=== PATIENT | female | born 1980 | race Caucasian/White ===

== ENCOUNTER 2022-10-05 12:54 | Emergency (ER) | payer BC, SELFPAY ==
--- NOTE | ~2022-10-05 | CT_ITS ---
EXAMINATION: CT abdomen pelvis w con DATE: 10/05/2022 19:10 INDICATION: RLQ abdominal pain TECHNIQUE: Computed tomography (CT) of the abdomen and pelvis was performed with 100 mL Omnipaque-350 intravenous contrast. Automated exposure control and iterative reconstruction technique were employe d. The dose-length product was 431.36 mGy-cm. COMPARISON: None. FINDINGS: Lower thorax: Unremarkable Liver: Normal. Biliary/Gallbladder: Gallbladder is absent. No concerning bile duct dilation. Pancreas: No mass or duct dilation. Spleen: Normal. Adrenals:No mass. Kidneys: Left midpole hypodensity, too small to characterize but most likely represents a cyst. No strange spicious mass, obstructing calcification, or hydronephrosis. GI tract: Mild distal esophageal and gastric wall edema. No small or large bowel dilation. Uniform soraya wel wall enhancement. Normal appendix. Mesentery/Peritoneum: No ascites, mass, or free air. Retroperitoneum: No mass. Atherosclerotic abdominal aortic and/or arterial calcifications. Pelvis: Mild wall thickening of the partially distended urinary bladder. Likely small uterine fibroid s. Simple left ovarian cyst that requires no additional workup. Normal-appearing right ovary with dom inant follicles. Soft Tissues: Soft tissues and body wall unremarkable. Bones: No acute osseous finding. IMPRESSION: Esophagitis/gastritis. Urinary bladder wall thickening which may be secondary to incomplete distentio n or cystitis. Reviewed, dictated and finalized at location [facility] [employer] [employer] IMPRESSION: Esophagitis/gastritis. Urinary bladder wall thickening which may be secondary t o incomplete distention or cystitis.
[2022-10-05 13:10] VITALS: BP 123/76; PULSE 116; RESP 16; TEMP 36.6; O2SAT 100
[2022-10-05 14:03] LABS: Basophils Absolute Auto 0.1 K/mm3 (0.0-0.1); Basophils Percent Auto 0.8 % (0.2-1.2); Eosinophils Absolute Auto 0.2 K/mm3 (0-0.3); Eosinophils Percent Auto 1.6 % (0-4.4); Hematocrit 43.3 % (37.0-47.0); Hemoglobin 14.3 g/dL (12.0-15.0); Immature Granulocyte Absolute 0.05 K/mm3 (0.00-0.031); Immature Granulocyte Percent A 0.4 % (0-0.5); Lymphocytes Absolute Auto 2.52 K/mm3 (0.9-3.2); Lymphocytes Percent Auto 22.3 % (18.3-44.2); Mean Corpuscular Volume 84.9 fl (80-100); Mean Platelet Volume 11.1 fl (7.4-10.4); Monocytes Absolute Auto 0.7 K/mm3 (0.1-0.6); Monocytes Percent Auto 5.9 % (2.6-8.5); Neutrophils Absolute Auto 7.8 K/mm3 (1.3-6.7); Platelet Count Result 408 k/mm3 (150-375); White Blood Count 11.3 K/mm3 (4.5-10.0)
[2022-10-05 14:07] LABS: Appearance Urine Slightly Cloudy (Clear); Bilirubin Urine 1+ (Negative); Blood Urine Negative (Negative); Color Urine Yellow (Yellow); Glucose Urine UA Negative (Negative); Ketones Urine Negative (Negative); Leukocyte Esterase Ur Negative LEU/UL (Negative); Nitrate Urine Negative (Negative); Protein Urine Negative (Negative); Urobilinogen Urine 0.2 mg/dL (<2.0); pH Urine 5.5 (5.0-9.0)
[2022-10-05 14:15] LABS: Alanine Aminotransferase 16 U/L (6-35); Albumin Level 4.3 g/dL (3.5-5.1); Alkaline Phosphatase 93 U/L (38-126); Anion Gap 9 mmol/L (8-16); Aspartate Amino Transferase 19 U/L (14-36); Bilirubin,Total 0.4 mg/dL (0.2-1.3); Blood Urea Nitrogen 7 mg/dL (7-17); Calcium 9.1 mg/dL (8.4-10.2); Carbon Dioxide 22 mmol/L (22-30); Chloride 107 mmol/L (98-107); Estimated Glomerular Filt Rate > 60; Glucose 97 mg/dL (65-110); Lipase 261 U/L (23-300); Potassium 3.7 mmol/L (3.4-5.0); Sodium 138 mmol/L (137-145)
[2022-10-05 14:19] LABS: Mucus Urine Moderate /lpf; RBC Urine 0-2 /hpf (0-2); Squamous Epithelial Cell Urine Rare /hpf (Few); WBC Urine 0-3 /hpf
[2022-10-05 14:21] LABS: Add Urine Microscopic? YES
--- NOTE | 2022-10-05 18:31 | ED.ABDPAIN ---
HPI - Abdominal Pain General Chief Complaint: Abdominal Pain Stated Complaint: abd pain Time Seen by Provider: 10/05/22 18:15 History of Present Illness HPI narrative: This is a 42-year-old female with history of cholecystectomy, presents emergency department complaining of right lower quadrant abdominal pain for the past. She states she was seen by primary care doctor after undergoing a ultrasound that was not concerning for torsion 3 days ago. Since then, the pain is worsened. Is now described as sharp, constant, rated 8/10, will intermittently radiating to the right flank but not associated with any fevers, chills, dysuria or bleeding. Related Data Allergies Allergy/AdvReac Type Severity Reaction Status Date / Time No Known Allergies Allergy Verified 09/30/22 08:38 Review of Systems Review of Systems: CONSTITUTIONAL: Denies fever, chills, or sweats. EYES: Denies visual changes, redness, or discharge. ENT: Denies rhinorrhea, congestion, sore throat, or otalgia. CARDIOVASCULAR: Denies chest pain, palpitations, or edema. RESPIRATORY: Denies cough or dyspnea. GASTROINTESTINAL: Abdominal pain, nausea denies vomiting, or diarrhea. GENITOURINARY: Denies dysuria or hematuria. SKIN: Denies rash or itching. MUSCULOSKELETAL: Denies back pain, joint pain, or myalgia. NEUROLOGIC: Denies headache, numbness, dizziness, or weakness. PSYCHIATRIC: Denies anxiety or depression. PMFSH Past Medical History Medical History Vaginal discharge Surgical History Surgical History History of cholecystectomy History of tubal ligation Family History Family History Father Diabetes mellitus Hypertension Mother Diabetes mellitus Hypertension Skin cancer Social History Social History Smoking status: Former smoker Alcohol intake: current Alcohol use details: occasional Substance use: never Living arrangements: alone Occupation/Education: occupation Gender identity (if verbalized by the patient): Female Sexual Orientation (if Verbalized by the Patient): Straight or Heterosexual Exam Narrative: GENERAL: Well-developed, well-nourished, in moderate distress due to pain HEAD: Normocephalic, atraumatic. EYES: PERRLA and EOMI. ENT: Nares clear, no rhinorrhea or epistaxis. Mucous membranes moist. Oropharynx without tonsillar hypertrophy exudate or other lesions. CHEST: Clear to auscultation. No respiratory distress. No wheezes rales or rhonchi HEART: Regular rate and rhythm. No murmur heard. Normal peripheral pulses. ABDOMEN: Soft, tender to palpation in the RLQ without rebound or mass, no guarding, Rovsing's sign negative, nondistended, normal active bowel sounds. No CVA tenderness to palpation. EXTREMITIES: Normal range of motion. No edema. SKIN: Warm, dry, no rash. NEURO: No focal deficits. Alert and oriented x3. PSYCH: Normal mood and affect. Course Course Emergency Course: 20:16 - CT abdomen pelvis shows bladder wall thickening consistent with decompression versus cystitis. But is otherwise not concerning for acute process, including mass or infection that could explain the patient's pain. Review of documentation, the patient is followed by Dr. Montalvo, (OB) who suspects endometriosis and is treating with oral contraceptives (this started approximately 5 days ago). I suspect this may be the cause of the patient's pain. Will discharge with pain medications and recommendations to follow-up with OB as previously scheduled. Discussed return to the emergency precautions including signs/symptoms of acute abdomen and sepsis. The patient voiced understanding and is comfortable with the plan. All questions answered to her satisfaction. Vital Signs Vital signs: Vital Signs Temperature 98 F 10/05/
[2022-10-05] MEDS: ONDANSETRON INJ 4 MG/2 ML VIAL IV PUSH (18:49)
[2022-10-05] MEDS: MORPHINE SULFATE (*CRX) 4 MG/ML INJ IV PUSH (18:49)
[2022-10-05] MEDS: SODIUM CHLORIDE 0.9% IV 1,000 ML 999 ML IV CONT (18:50)
[2022-10-05 20:35] VITALS: BP 124/90; PULSE 68; RESP 17; TEMP 36.4; O2SAT 100
[2022-10-05 20:37] VITALS: BP 124/90; PULSE 86; RESP 17; TEMP 36.6; O2SAT 98
== END 2022-10-05 20:41 | disposition home or self-care (01) ==
PROVIDERS: Emergency Medicine; Emergency Provider Preventive Medicine Aerospace Medicine; PCP Physician Assistant
DX: R10.31 Right lower quadrant pain (principal); Z87.891 Personal history of nicotine dependence
CPT/HCPCS: 36415; 74177; 80053; 81001; 83690; 85025; 96361; 96374; 96375; 99284; J2270; J2405; J7030; Q9967

== ENCOUNTER 2022-11-04 13:00 | Outpatient (CLI) | payer BC, SELFPAY | END 2022-11-04 13:01 | disposition home or self-care (01) | LOC: ANHSURGERY 13:06 | PROVIDERS: PCP Physician Assistant; Visit Provider Student in an Organized Health Care Education/Training Program | DX: R10.2 Pelvic and perineal pain (principal); Z01.818 Encounter for other preprocedural examination | CPT/HCPCS: 36415; 86850; 86900; 86901 ==

== ENCOUNTER 2022-11-18 07:34 | Outpatient (CLI) | payer BC, SELFPAY | END 2022-11-18 07:35 | disposition home or self-care (01) | LOC: ANHSURGERY 07:37 | PROVIDERS: PCP Physician Assistant; Visit Provider Student in an Organized Health Care Education/Training Program | DX: R10.2 Pelvic and perineal pain (principal); Z01.818 Encounter for other preprocedural examination | CPT/HCPCS: 36415; 86850; 86900; 86901 ==

== ENCOUNTER 2023-01-01 13:01 | Outpatient (CLI) | payer BC, SELFPAY ==
[2023-01-01 13:27] LABS: Hematocrit 39.2 % (37.0-47.0); Hemoglobin 13.1 g/dL (12.0-15.0); Mean Corpuscular HGB Conc 33.4 g/dl (32-36); Mean Corpuscular Hemoglobin 29.1 pg (26-34); Mean Corpuscular Volume 87.1 fl (80-100); Mean Platelet Volume 11.1 fl (7.4-10.4); Platelet Count Result 336 k/mm3 (150-375); Red Cell Distribution Width 15.9 % (11.5-14.5); White Blood Count 11.5 K/mm3 (4.5-10.0)
== END 2023-01-01 13:02 | disposition home or self-care (01) ==
LOC: ANHSURGERY 13:05
PROVIDERS: PCP Physician Assistant; Visit Provider Student in an Organized Health Care Education/Training Program
DX: Z01.818 Encounter for other preprocedural examination (principal)
CPT/HCPCS: 36415; 85027; 86850; 86900; 86901

== ENCOUNTER 2023-01-07 00:45 | Day surgery (SDC) | payer BC, SELFPAY ==
[2022-11-03 12:34] VITALS: BMI 26.6
--- NOTE | 2022-11-03 12:41 | PC.NURSE ---
Report to the Outpatient Waiting Room, entrance under the green pavilion located off [facility], at time 10:00 on date 11/12/22. Planned Procedure Time: 12:00. Time changes happen often and if your time is changed the preop area will call you the afternoon before. - You and your visitor will be asked to self-screen and do not enter if you have any COVID symptoms. - Only one visitor is requested with a max of two and NO children visitors are allowed at this time. - The patient visitor may be requested to leave or wait in car when not with patient due to distancing restrictions. - A mask is optional within the hospital at this time. Patients may have clear liquids (water, carbonated beverages, clear teas, apple juice) until 3 hours prior to surgery (9:00) with a maximum of 20 ounces. - No food from midnight until time of surgery Take the following medications with a SIP of water the morning of surgery: PAIN PILL IF NEEDED DO NOT STOP ANY OF YOUR OTHER PRESCRIPTION MEDICATIONS PRIOR TO SURGERY EXCEPT THE FOLLOWING Medications to discontinue per physician: N/A Date to take last dose: N/A Please no make-up, nail greek, hairspray, perfume, deodorant, or body powder the day of surgery. No jewelry (including any body piercings) or valuables the day of surgery, leave them at home. Please take a shower or bath the night before, or the morning of, surgery with an antibacterial soap. Wear comfortable, loose fitting clothing. - Jewelry must be removed prior to entering the operating room. Rings and piercings that are not removed may be cut off. - The hospital will not accept responsibility for valuables. - Please leave all valuables, including medications, at home the day of surgery. If you are going home after surgery, a licensed skidder driver must drive you home. - NO public transportation without another adult if you receive anesthesia. - We recommend that an adult stay with you for 24 hours following discharge. - We also recommend that you do not drive, make important decision, drink alcoholic beverages, or take any drugs that were not prescribed by your health care provider for at least 24 hours after your discharge time. Follow any additional instructions given to you from your surgeon. If you or anyone in your household have experienced Covid symptoms in the past week, please notify your surgeon or the nurse liaison at the phone number below for possible testing. Telephone instructions given to EMERY - MILE MILES and asked if any additional questions and then verbalized understanding. Patient advised to call surgeon office or pre surgery nurse liaison [phone] if any additional questions.
--- NOTE | 2022-11-16 10:43 | PC.NURSE ---
Report to the Outpatient Waiting Room, entrance under the green pavilion located off [facility], at time 0930 on date 11/26/22. Planned Procedure Time: 1130. Time changes happen often and if your time is changed the preop area will call you the afternoon before. - You and your visitor will be asked to self-screen and do not enter if you have any COVID symptoms. - Only one visitor is requested with a max of two and NO children visitors are allowed at this time. - The patient visitor may be requested to leave or wait in car when not with patient due to distancing restrictions. - A mask is optional within the hospital at this time. Patients may have clear liquids (water, carbonated beverages, clear teas, apple juice) until 3 hours prior to surgery with a maximum of 20 ounces. - No food from midnight until time of surgery - Infants may have breast milk until 4 hours before surgery, formula 6 hours prior to surgery. - Children will be allowed to drink immediately following surgery. If applicable, please bring a bottle or sippy cup to assist with drinking. Juice, water, soda, and popsicles are readily available. For infants on formula, please bring formula the day of surgery. Pacifiers are allowed. Take the following medications with a SIP of water the morning of surgery: _n/a DO NOT STOP ANY OF YOUR OTHER PRESCRIPTION MEDICATIONS PRIOR TO SURGERY ?EXCEPT THE FOLLOWING Medications to discontinue per physician _n/a Date to take last dose Please no make-up, nail citizen of [place], hairspray, perfume, deodorant, or body powder the day of surgery. No jewelry (including any body piercings) or valuables the day of surgery, leave them at home. Please take a shower or bath the night before, or the morning of, surgery with an antibacterial soap. Wear comfortable, loose fitting clothing. Children are encouraged to wear pajamas. - Jewelry must be removed prior to entering the operating room. Rings and piercings that are not removed may be cut off. - The hospital will not accept responsibility for valuables. - Please leave all valuables, including medications, at home the day of surgery. If you are going home after surgery, a licensed hazmat cdl a driver must drive you home. - NO public transportation without another adult if you receive anesthesia. - We recommend that an adult stay with you for 24 hours following discharge. - We also recommend that you do not drive, make important decision, drink alcoholic beverages, or take any drugs that were not prescribed by your health care provider for at least 24 hours after your discharge time. For Pediatric surgeries, we recommend two adults accompany the child home. Follow any additional instructions given to you from your surgeon. If you or anyone in your household have experienced Covid symptoms in the past week, please notify your surgeon or the nurse liaison at the phone number below for possible testing. Telephone instructions given to Gertrude De La Garza and asked if any additional questions and then verbalized understanding. Patient advised to call surgeon office or pre surgery nurse liaison [phone] if any additional questions.
--- NOTE | 2022-12-29 13:23 | PC.NURSE ---
SPOKE WITH PT ABOUT DATE CHANCE FOR PROCEDURE. REVIEWED PT HISTORY AND MEDICATION LIST. NO CHANGES IN HEALTH HX. PT DAY OF SURGERY INSTRUCTIONS UPDATED AND REVIEWED. ALL QUESTIONS ANSWERED.
--- NOTE | 2022-12-29 13:25 | PC.NURSE ---
Report to the Outpatient Waiting Room, entrance under the green pavilion located off [facility], at time _1000___ on date _01/07/23__. Planned Procedure Time: _1200__. Time changes happen often and if your time is changed the preop area will call you the afternoon before. - You and your visitor will be asked to self-screen and do not enter if you have any COVID symptoms. - A mask is optional within the hospital at this time. Patients may have clear liquids (water, carbonated beverages, clear teas, apple juice) until 3 hours prior to surgery with a maximum of 20 ounces. - No food from midnight until time of surgery - Infants may have breast milk until 4 hours before surgery, formula 6 hours prior to surgery. - Children will be allowed to drink immediately following surgery. If applicable, please bring a bottle or sippy cup to assist with drinking. Juice, water, soda, and popsicles are readily available. For infants on formula, please bring formula the day of surgery. Pacifiers are allowed. Take the following medications with a SIP of water the morning of surgery: _NO HOME MEDS DOS DO NOT STOP ANY OF YOUR OTHER PRESCRIPTION MEDICATIONS PRIOR TO SURGERY ?EXCEPT THE FOLLOWING Medications to discontinue per physician Date to take last dose Please no make-up, nail [place], hairspray, perfume, deodorant, or body powder the day of surgery. No jewelry (including any body piercings) or valuables the day of surgery, leave them at home. Please take a shower or bath the night before, or the morning of, surgery with an antibacterial soap. Wear comfortable, loose fitting clothing. Children are encouraged to wear pajamas. - Jewelry must be removed prior to entering the operating room. Rings and piercings that are not removed may be cut off. - The hospital will not accept responsibility for valuables. - Please leave all valuables, including medications, at home the day of surgery. If you are going home after surgery, a licensed local owner operator truck driver must drive you home. - NO public transportation without another adult if you receive anesthesia. - We recommend that an adult stay with you for 24 hours following discharge. - We also recommend that you do not drive, make important decision, drink alcoholic beverages, or take any drugs that were not prescribed by your health care provider for at least 24 hours after your discharge time. For Pediatric surgeries, we recommend two adults accompany the child home. Follow any additional instructions given to you from your surgeon. If you or anyone in your household have experienced Covid symptoms in the past week, please notify your surgeon or the nurse liaison at the phone number below for possible testing. Telephone instructions given to _PATIENT__and asked if any additional questions and then verbalized understanding. Patient advised to call surgeon office or pre surgery nurse liaison [phone] if any additional questions.
--- NOTE | 2023-01-06 13:33 | P.PNAN_ITS ---
Anes - Initial Pre Proc Eval Procedure: Operation Date: 01/07/23 12:00 Proposed Procedures p Robotic Assisted Total Laparoscopic Hysterectomy with Bilateral Salpingectomy - Easton Montalvo MD Date/Time: 01/06/23 13:33 Surgeon: Easton Montalvo MD Pre Op Diagnosis: pelvic pain Patient Data Age: 42 Gender: F Height: 1.7 m Weight: 77.11 kg Allergies Allergy/AdvReac Type Severity Reaction Status Date / Time No Known Allergies Allergy Verified 01/07/23 10:55 Home Medications Medication Instructions Recorded Confirmed Type L norgest/E estradiol-E estrad 1 tablet PO DAILY 10/09/22 11/03/22 History 0.15 mg-30 mcg (84)/10 mcg(7) tabs,3mos ([place]) naproxen 500 mg tablet 500 mg PO BID 11/03/22 11/03/22 History Patient hx anesthesia problems: none Family hx anesthesia problems: none Results Review: All pre-operative results and documents have been reviewed as part of the pre- operative evaluation. [facility] Past Medical History Medical History Screening for breast cancer Vaginal discharge Surgical History Surgical History History of cholecystectomy History of tubal ligation Family History Family History Father Diabetes mellitus Hypertension Mother Diabetes mellitus Hypertension Skin cancer Social History Social History Smoking packs per day: 1.5 Smoking cigarettes per day: 30.0 Years smoked: 10 Smoking pack-years: 15.00 Smoking status: Current some day smoker Tobacco type: cigarettes Smoking end date: 09/13/20 Alcohol intake: never Alcohol use details: occasional Substance use: current Substance use type: marijuana Living arrangements: with family Occupation/Education: occupation Gender identity (if verbalized by the patient): Female Sexual Orientation (if Verbalized by the Patient): Straight or Heterosexual Spiritual care concerns: No Anes - Eval Final PreProcedure Day of Procedure 01/06/23 13:33 Patient weight: overweight Heart: regular rate and rhythm Lungs: clear to auscultation Airway: Mallampati scale class II and special considerations poor dentition Neurological: alert and oriented Last oral intake: >/= 8 hours ASA classification: II Emergent: no Anesthetic plan: proceed Anesthesia type and monitoring: general ETT and standard monitoring Results Review: All pre-operative results and documents have been reviewed as part of the pre- operative evaluation. Informed Consent: The patient's anesthetic plan and its attendant risks and benefits were discussed with the patient/family/POA. Questions were solicited and answers provided to the satisfaction of the patient/family/POA.
[2023-01-07] VITALS (10 sets, daily range): BP systolic 106–136; BP diastolic 56–87; PULSE 54–82; RESP 12–20; TEMP 36.3–36.9; O2SAT 98–100
--- NOTE | 2023-01-07 10:23 | PM.IMHP ---
H&P: HPI History of Present Illness Date/Time: 01/07/23 10:23 Chief Complaint: Pelvic pain Dysmenorrhea Narrative: 42-year-old female who presents for robotic assisted total laparoscopic hysterectomy and bilateral salpingectomy for pelvic pain and dysmenorrhea. patient has suspected endometriosis. Patient has failed medical management past. Patient elects for definitive management via hysterectomy. Review of Systems Cardiovascular: Cardiovascular: Denies chest pain, Denies leg edema, Denies palpitations, Denies dyspnea and Denies dyspnea on exertion Respiratory: Respiratory: Denies cough, Denies dyspnea and Denies dyspnea on exertion Gastrointestinal: Gastrointestinal: Denies abdominal pain, Denies constipation, Denies diarrhea, Denies nausea and Denies vomiting Genitourinary: Genitourinary: Denies hematuria, Denies urinary frequency, Denies dysuria, Denies pelvic pain, Denies urinary incontinence and Denies vaginal discharge Neurologic: Reports system reviewed and no additional complaints, except as documented Psychiatric: Psychiatric: Reports no additional psychiatric complaints Endocrine: Endocrine: Denies palpitations PMFSH Past Medical History Medical History Screening for breast cancer Vaginal discharge Surgical History Surgical History History of cholecystectomy History of tubal ligation Family History Family History Father Diabetes mellitus Hypertension Mother Diabetes mellitus Hypertension Skin cancer Social History Social History Smoking packs per day: 1.5 Smoking cigarettes per day: 30.0 Years smoked: 10 Smoking pack-years: 15.00 Smoking status: Current some day smoker Tobacco type: cigarettes Smoking end date: 09/13/20 Alcohol intake: never Alcohol use details: occasional Substance use: current Substance use type: marijuana Living arrangements: with family Occupation/Education: occupation Gender identity (if verbalized by the patient): Female Sexual Orientation (if Verbalized by the Patient): Straight or Heterosexual Spiritual care concerns: No Meds Home Medications and Allergies Home Medications Medication Instructions Recorded Confirmed Type L norgest/E estradiol-E estrad 1 tablet PO DAILY 10/09/22 11/03/22 History 0.15 mg-30 mcg (84)/10 mcg(7) tabs,3mos ([place]) naproxen 500 mg tablet 500 mg PO BID 11/03/22 11/03/22 History Allergies Allergy/AdvReac Type Severity Reaction Status Date / Time No Known Allergies Allergy Verified 12/29/22 13:20 Exam Const: General: no acute distress Eyes: EOM: EOMs intact bilaterally Neck: Neck: supple Thyroid: thyroid normal Chest: Breast/axilla inspection: normal inspection of the breasts Breast/axilla palpation: normal palpation of the breasts, normal palpation of the axillae and no axillary lymphadenopathy Resp: Effort & Inspection: normal respiratory effort Auscultation: clear to auscultation bilaterally Cardio: Rate: regular rate Rhythm: regular rhythm GI: Inspection: non-distended GI Palp: Yes Soft to palpation, No Tenderness to palpation present (GI) and No Guarding due to palpation present (GI) Auscultation: normal bowel sounds : General: No bladder normal to palpation External Female Exam: normal external appearance Speculum Exam - Vagina: normal vaginal discharge and No vaginal bleeding Speculum Exam - Cervix: nontender Bimanual exam- vagina & uterus: No bladder normal to palpation and No Cervical tenderness present OB/external & speculum: No vaginal bleeding Skin: General skin exam: normal color and no rashes or lesions noted Neuro: Cognition (Neuro): normal cognition Speech: normal speech Extrem: General: normal to inspection and no samuel
--- NOTE | 2023-01-07 10:26 | WPDHPUPDATE1 ---
History and Physical Update Update Date/Time: 01/07/23 10:26 History and Physical has been reviewed, including an updated exam of the patient. There are NO changes in the patient's condition. Risks, benefits, and alternatives have been discussed and questions answered. Patient agrees to proceed with procedure.
[2023-01-07] MEDS: ACETAMINOPHEN 500 MG TABLET 1000 MG PO (10:40)
[2023-01-07] MEDS: KETOROLAC 15 MG/ML VIAL (*BKC) IV PUSH (10:40)
[2023-01-07] MEDS: LACTATED RINGERS 1,000 ML 30 ML IV CONT ×2 (10:54→13:44)
[2023-01-07] MEDS: fentaNYL CITRATE INJ (*CRX) 100 MCG/2 ML VIAL 25 MCG IV PUSH ×6 (13:53→15:23)
--- NOTE | 2023-01-07 14:59 | SUR.PHASEI ---
1455: RN tried to call 2nd floor OB to give report. Floor RN has to call back.
--- NOTE | 2023-01-07 15:38 | ADMGEN ---
1531-This patient, Gertrude De La Garza, was admitted to OB 2nd Floor Room 289-00. Patient/family oriented to hospital policies and general routines including ID bracelet, bed and alarms, visiting hours, pain management, procedures, bathroom and other care routines, personal items, smoking policy, room service/diet, and visiting hours. Information on how to activate the Rapid Response Team has been discussed. Patient/Family are encouraged to report perceived risks to care and to ask questions if they do not understand what they are told or what they should do.
[2023-01-07] MEDS: IBUPROFEN 600 MG TABLET PO (15:51)
--- NOTE | 2023-01-07 16:20 | W.PM.PROC2 ---
Procedure Note - Detailed Date of Procedure 01/07/23 Pre-op Diagnosis pelvic pain dysmenorrhea Post-op Diagnosis Same Procedure Performed Robotic TLH/BS Surgeon Easton Montalvo MD Anesthesia General Indications pelvic pain dysmenorrhea Findings endometrial implants noted in the pelvic peritoneum and on the uterine serosa Description of Procedure After the patient was appropriately consented she was taken to the operating room where she was transferred to the table in a dorsal supine position. General anesthesia was then induced with endotracheal intubation. The patient was transferred to a dorsal lithotomy position using adjustable yellow-fin stirrups. Her position was adjusted for appropriate support of her lower back and lower extremities. The patient was prepped and draped. A transurethral ojeda catheter was place. The cervix was sequentially dilated and a [place] manager clinical uterine manipulator placed in typical fashion about a 3cm JOE ring. Gloves were changed. After confirmation of a functioning orogastric tube, lidocaine was injected at Welch's point in the LUQ and a 5mm incision was made. A 5mm Optiview trocar was then inserted into the abdominal cavity under direct visualization and done so without complication. The abdomen was then insufflated with approximately 2-3L of CO2 establishing a pneumoperitoneum and the patient was placed in Trendelenburg position. Just above the umbilicus in the midline, a 8 mm incision made after injection of lidocaine and a 8 mm bladeless trocar advanced into the abdominal cavity under direct visualization without incident. We subsequently placed two robotic ports in a similar fashion, one in the left mid-quadrant and one in the right, 10cm lateral to the midline port. The robot was then docked. Attention was turned to the left pelvis. The left fallopian tube was removed by sequentially dividing the mesosalpinx towards the uterus sparing the ovary. The utero-ovarian ligament was desiccated and transected, as was the round ligament. The posterior peritoneal leaf was taken down to the JOE ring. The anterior leaf was developed as well as the start of the bladder flap. The left uterine artery was then skeletonized and desiccated and transected just above the level of the JOE ring. Attention was turned to the right pelvis. The right fallopian tube was removed by sequentially dividing the mesosalpinx towards the uterus sparing the ovary. The utero-ovarian ligament was desiccated and transected, as was the round ligament. The posterior peritoneal leaf was taken down to the JOE ring. The anterior leaf was developed as well as the start of the bladder flap. The right uterine artery was then skeletonized and desiccated and transected just above the level of the JOE ring. The bladder was then further dissected inferiorly over the level of the JOE ring. A circumferential colpotomy was made using monopolar current. The uterus, cervix, bilateral tubes were then delivered transvaginally. I then placed a single figure of eight suture of 0-vicryl in the left corner of the vaginal cuff. I then re-approximated the colpotomy with a running #1 PDO Quill suture in 2 layers. Following this dissection, the abdomen and pelvis were copiously irrigated and all surgical sites found to be hemostatic. Skin sites were reapproximated with 4-0 Vicryl in a subcuticular fashion. Steri-Strips were placed. Estimated Blood Loss 25 Urine Output -200.0 Drains No Packing No Pathology Yes (uterus, cervix, bilateral fallopian tubes, bilateral ovaries ) Complications No immediate complications Condition Stable Disposition PACU [facility] Billing Surgery - Charge Forward: Surgery Billing
--- NOTE | 2023-01-07 16:52 | P.DS_ITS ---
DS: Admitting Diagnosis Discharge Date 01/08/23 Admitting Diagnosis pelvic pain dysmenorrhea DS: Discharge Diagnosis Discharge Diagnosis (1) Dysmenorrhea: Code(s): N94.6 - Dysmenorrhea, unspecified Status: Acute (2) Pelvic pain: Code(s): R10.2 - Pelvic and perineal pain Status: Acute DS: Summary Hospital Course Hospital Course: Gertrude De La Garza was admitted after robotic assisted total laparoscopic hysterectomy and bilateral salpingectomy for pelvic pain and dysmenorrhea. The above procedure was performed with no complications. She is doing well post op. She states her pain is well controlled with PO medications. She reports minimal bleeding. She is ambulating up to the chair. Her ojeda catheter was removed. She is tolerating PO without N/V. She reports passing flatus. Status at Discharge Overall status at discharge: patient is progressing back to baseline Time Spent with Patient Time attestation: Total time spent providing and/or coordinating discharge services: Time spent: Less than 30 minutes Exam Const: General: comfortable and no acute distress Limitations: no limitatio ns Resp: Effort & Inspection: normal respiratory effort Auscultation: clear to auscultation bilaterally Cardio: Rate: regular rate Rhythm: regular rhythm GI: Inspection: non-distended GI Palp: Yes Soft to palpation, Yes Tenderness to palpation present (GI) (milder tenderness to deep palpation) and No Guarding due to palpation present (GI) Auscultation: normal bowel sounds Other: incisions C/D/I covered with dermabond Urinary Catheter: Urinary Catheter: urine clear Skin: General skin exam: normal color Extrem: General: normal to inspection Psych: Mental Status: mental status grossly normal Affect: normal affect DS: Data Data Completed and Pending Pending studies at discharge: Pending at discharge 01/06/23 13:11 Surgical [PTH] Routine Discharge Plan Discharge Patient Disposition: Home, Self-Care Patient Instructions: Laparoscopic Hysterectomy (DC) Stand Alone Forms: General Discharge Instructions Follow-up/Referrals: Easton Montalvo MD [Physician] - Discharge Medications: New oxycodone-acetaminophen 5-325 mg tablet 1 tablet PO Q6H PRN (Reason: pain) Qty: 28 0RF ibuprofen 600 mg tablet 600 mg PO Q6H PRN (Reason: pain) Qty: 30 0RF Discontinued L norgest/e.estradiol-e.estrad [Simpesse] 0.15 mg-30 mcg (84)/10 mcg (7) tablets,dose pack,3 month 1 tablet PO DAILY naproxen 500 mg tablet 500 mg PO BID
[2023-01-07] MEDS: HYDROcodone/acetaminophen (*CRX) 10-325 MG TABLET 1 TAB PO ×2 (17:55→21:03)
[2023-01-08 01:40] VITALS: BP 106/37; PULSE 49; RESP 18; TEMP 36.4
[2023-01-08] MEDS: HYDROcodone/acetaminophen (*CRX) 10-325 MG TABLET 1 TAB PO ×2 (01:42→08:03)
[2023-01-08] MEDS: IBUPROFEN 600 MG TABLET PO ×2 (01:51→08:03)
[2023-01-08 05:15] VITALS: BP 118/70; PULSE 68; RESP 20; TEMP 36.3
[2023-01-08 08:00] VITALS: PULSE 68; RESP 20; O2SAT 100
[2023-01-08] MEDS: DOCUSATE SODIUM 100 MG CAPSULE (08:03)
[2023-01-08 08:10] VITALS: BP 137/72; PULSE 73; RESP 18; TEMP 36.6; O2SAT 100
== END 2023-01-08 09:16 | disposition home or self-care (01) ==
LOC: ANHSURGERY 09:51 → ANHOB2 15:29
PROVIDERS: PCP Physician Assistant; Visit Provider Student in an Organized Health Care Education/Training Program
PROC: (CPT 58571; principal; 2023-01-07 12:00)
DX: N80.30 Endometriosis of pelvic peritoneum, unspecified (principal); N80.00 Endometriosis of the uterus, unspecified; R10.2 Pelvic and perineal pain; N94.6 Dysmenorrhea, unspecified; N80.202 Endometriosis of left fallopian tube, unspecified depth; D25.9 Leiomyoma of uterus, unspecified; F17.210 Nicotine dependence, cigarettes, uncomplicated; F12.90 Cannabis use, unspecified, uncomplicated
CPT/HCPCS: 58571; S2900; 88307; 99199; A9270; J0330; J0690; J1100; J1170; J1885; J2250; J2405; J2704; J2710; J3010; J7030; J7120

== ENCOUNTER 2024-02-16 15:42 | Outpatient (CLI) | payer BC, SELFPAY ==
--- NOTE | ~2024-02-16 | XR_ITS ---
Cervical Spine: AP, lateral, open-mouth views Clinical History: Bilateral carpal tunnel syndrome Findings: The normal lordotic curve is maintained. The vertebral bodies and posterior elements appea r intact. The intervertebral disc spaces are well maintained. Pre-vertebral soft tissues are unremar kable. Impression: No significant abnormality is seen. Reviewed, dictated and finalized at [facility]. Impression: No significant abnormality is seen.
== END 2024-02-16 15:43 | disposition home or self-care (01) ==
PROVIDERS: PCP Physician Assistant; Visit Provider Physician Assistant
DX: G56.03 Carpal tunnel syndrome, bilateral upper limbs (principal)
CPT/HCPCS: 72040

== ENCOUNTER 2024-06-12 12:46 | Outpatient (RCR) | payer BC, SELFPAY ==
--- NOTE | 2024-06-12 13:54 | PTOPEVAL1 ---
Assessment and note entered by Tanvir Root Evaluation Information Assessment Status Evaluation ICD-10 Condition Codes (PT) M25.512 Onset 02/12/24 Subjective Information Pt. reports shoulder pain began at the beginning of February. She reports she underwent carpal tunnel surgery and ulnar nerve transposition sometime in February. She reports that the shoulder pain is located in the front and back of the left shoulder . She states that her shoulder pain is constant. She states that the pain is worsened when trying to sleep. She states that she had a cortisone shot in the left shoulder that gave her about 3 days of relief. Pt. underwent x-ray that was negative. She states that pain is worsened with reaching overhead and behind her back. She states that she has trouble dressing and brushing her hair due to pain. 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 She reports that she only gets 4-5 hours of sleep per night due to pain. She states that she is right hand dominant. She states that she is not taking medication, but has attempted heat and ice with little relief. She reports that her goal is to decrease her left shoulder pain. Reported Pain Level Pain Score 4: Self Report Assessment PT Clinical Summary Pt. is a 43 year old female who enters the clinic with left shoulder pain, due to left impingement syndrome. She presents with impaired left shoulder strength, impaired left shoulder ROM, pain and impaired postural awareness. Continued skilled PT is indicated in order to improve these areas to improve comfort with IADL performance. Plan of Care Interventions Electrical Stimulation,Hot Pack/Cold Pack,Manual Therapy,Neuro Re-education,Patient/Caregiver Educati,Therapeutic Activities,Therapeutic Exercise PT Services Indicated Yes Treatment Frequency and 2x/week x 10 visits Duration These treatments will address the objective and functional deficits as defined above. The patient will be advanced safely and appropriately in order for the patient to progress towards his/her prior level of function. Additional exercises will be introduced and as well as a comprehensive home exercise program upon discharge, if needed, ?to ensure carryover of functional gains achieved in the clinic. This treatment plan has been reviewed and agreement upon by the patient.
--- NOTE | 2024-06-12 13:54 | OPREHPOC ---
Outpatient Therapy Plan of Care This is a Multidisciplinary Plan of Care that may contain components documented by all disciplines (PT, OT, and ST.) PT Problem 1 PT Problem #1 Knowledge Deficit PT Goal 1 Goal / Goal Update Pt. will be independent with a HEP addressing strength and postural awareness Target Visit 2 PT Problem 2 PT Problem #2 Impaired Range of Motion PT Goal 1 Goal / Goal Update Pt. will demonstrate 165 degrees pain free left shoulder flexion AROM Pt. will achieve 95 degrees pain free ER in order to complete grooming activities without limitation . Target Visit 10 PT Problem 3 PT Problem #3 Impaired Strength PT Goal 1 Goal / Goal Update Pt. will demonstrate 5/5 gross proximal u.e. strength on the left. Pt. will be able to lift 5# object to 160 degrees left shoulder flexion without pain for 10-15 reps. Target Visit 10 PT Problem 4 PT Problem #4 Impaired Functional Mobil PT Goal 1 Goal / Goal Update Pt. will be able to sleep through the night without pain disturbance Pt. will present with less than 20% limitation on the Quick DASH indicating significant functional improvement. Target Visit 10
--- NOTE | 2024-06-14 12:59 | PCPTNOTE ---
Patient cancelled session today. Reports she is not able to get her jeep into gear and cannot get ahold of anyone to help her.
== END 2024-06-12 13:45 | disposition home or self-care (01) ==
LOC: CHSPT 12:46
DX: M25.512 Pain in left shoulder (principal)
CPT/HCPCS: 97110; 97140; 97161

== ENCOUNTER 2025-05-07 16:42 | Outpatient (CLI) | payer BC, SELFPAY ==
--- NOTE | ~2025-05-07 | XR_ITS ---
XR shoulder LT min 2V 05/07/2025 17:42 Indication: Left shoulder pain Procedure: 4 views left shoulder Comparison: No prior studies for comparison. Findings: There is anatomic alignment. No fracture, subluxation or dislocation. No significant soft tissue abnormality. No foreign bodies. Impression: 1: No acute bone or joint abnormality. Reviewed, dictated and finalized at location [facility]. Impression: 1: No acute bone or joint abnormality.
--- NOTE | ~2025-05-07 | XR_ITS ---
[id number] 05/07/2025 17:41 Indication: Left knee pain Procedure: 2 views left knee Comparison: No prior studies for comparison. Findings: There is mild patellofemoral compartment osteoarthritis. No fracture, subluxation or dislocation. No soft tissue abnormality. No foreign body. Impression: 1: Mild patellofemoral compartment osteoarthritis. Reviewed, dictated and finalized at location [facility]. Impression: 1: Mild patellofemoral compartment osteoarthritis.
--- OUTSIDE RECORDS SUMMARY | 2025-05-07 16:49 | XMS_ITS | Clinical Summary ---
Author Organization [facility] Address [address] [place] [address] Care Team Providers Care Medical Science Liaison Name Role Phone Cristhian Dorman Primary Care Provider [phone] Source Comments [facility],non-owned Affiliates and Associated Physician Practices is amultiple site organization consisting of ambulatory clinics and hospital sitesin [place], [place], [place] and [place]. This disclosure is being madepursuant to the Care Everywhere program and may not contain all information available regarding this patient. Last updated 18.[facility] Allergies Active Allergy Reactions Criticality Noted Date Comments Penicillins Urticaria 01/12/2010 Medications * Be aware that medications may not be up to date on this document. Alwaysverify current medications with the patient. ibuprofen (MOTRIN) 600 MG tablet Take 1 Tab by mouth every 8 hours as needed for Pain. Take with food. Take with plenty of water. 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 Gender Identity Not on file Sexual Orientation Not on file Last Filed Vital Signs Vital Sign Reading Time Taken Comments Blood Pressure 116/77 01/12/2010 6:18 PM CDT Pulse 99 01/12/2010 6:18 PM CDT Temperature 37.3 C (99.1 F) 01/12/2010 4:46 PM CDT Respiratory Rate 16 01/12/2010 6:18 PM CDT Oxygen Saturation 100% 01/12/2010 6:18 PM CDT Inhaled Oxygen Concentration - - Weight - - Height - - Body Mass Index - - Plan of Treatment Health Maintenance Due Date Last Done Comments BILLY (AGES 45-75) - COL ON CA SCREENING 1978 COLON MONITORING 1978 COLONOSCOPY - COLON CA SCREENING 1978 CT COLONOGRAPHY - COLON CA SCREENING 1978 Colorectal Cancer Screening 1978 FIT - COLON CA SCREENING 1978 FLEX SIG - COLON CA SCREENING 1978 LIPID TESTING 1978 MAMMOGRAM 1978 HIV SCREENING 1993 HEPATITIS C SCREENING 08/05/1996 DTAP/TDAP/TD VACCINES (1 - Tdap) 1997 HEPATITIS B VACCINE (1 of 3 - 19+ 3-dose series) 1997 COVID-19 VACCINE (1 - 2023-2 5 season) 2024 DEPRESSION SCREENING 09/13/2024 INFLUENZA VACCINE (#1) 2025 ZOSTER VACCINE (1 of 2) 2028 HIB VACCINE Aged Out No longer eligi ble based on patient's age to complete this topic HPV VACCINE Aged Out No longer eligi ble based on patient's age to complete this topic MENINGOCOCCAL (Group B) VACC INE SHARED DECISION-MAKING Aged Out No longer eligibl e based on patient's age to complete this topic MENINGOCOCCAL GROUPS A/C/Y/W VACCINE Aged Out No longer eligible b ased on patient's age to complete this topic PNEUMOCOCCAL VACCINE Aged Out No long er eligible based on patient's age to complete this topic Care Teams Medical Science Liaison Relationship Specialty Start Date End Date Cristhian Dorman PA [address] [place] [id number] PCP - General 01/20/23
== END 2025-05-07 16:43 | disposition home or self-care (01) ==
LOC: CHSIMG 16:47
PROVIDERS: PCP Physician Assistant; Visit Provider Physician Assistant
DX: M25.562 Pain in left knee (principal); R07.89 Other chest pain; M17.11 Unilateral primary osteoarthritis, right knee
CPT/HCPCS: 73030; 73560